=== PATIENT | female | born 1975 | race Caucasian/White ===

== ENCOUNTER 2020-07-21 06:12 | Inpatient (IN) | payer OTHER ==
[2020-07-21 07:05] LABS: BASOPHIL 0.1 % (0-2); EOSINOPHIL 0 % (0-5); HCT 46.6 % (37.0-47.0); HGB 14.4 g/dl (12.5-16.0); LYMPHOCYTE 9.5 % (15-48); MCH 30.8 pg (25.0-31.0); MCHC 30.9 g/dL (32.0-36.0); MCV 99.6 fL (78.0-100.0); MONOCYTE 2.2 % (0-12); MPV 8.5 fL (6.0-9.5); NEUTROPHIL 87.4 % (41-80); NRBC 0; PLT 222 K/uL (150-400); RBC 4.68 M/uL (4.20-5.40); RDW 20.8 % (11.5-14.0); WBC 7.8 K/uL (4.0-10.5)
[2020-07-21 07:38] LABS: ALBUMIN 2.3 g/dL (3.4-5.0); BILIRUBIN - TOTAL 0.9 mg/dL (0.2-1.0); BUN/CREAT RATIO (CALC) 22.6 RATIO; CREATININE 1.64 mg/dL (0.51-0.95); GLOBULIN (CALCULATION) 4.8 g/dL; POTASSIUM 2.9 mmol/L (3.5-5.1); TOTAL PROTEIN 7.1 g/dL (6.4-8.2)
[2020-07-21 07:43] LABS: BILIRUBIN NEGATIVE (NEGATIVE); BLOOD 1+ Ery/uL (NEGATIVE); CLARITY HAZY (CLEAR); COLOR YELLOW (YELLOW); GLUCOSE (U) 3+ mg/dL (NORMAL); LEUKOCYTES NEGATIVE Leu/uL (NEGATIVE); NITRITE NEGATIVE (NEGATIVE); PROTEIN 2+ mg/dL (NEGATIVE); UROBILINOGEN 0.2 mg/dL (0.2-1.0)
[2020-07-21 07:52] LABS: BACTERIA 4+; URINARY WBC 20-50
[2020-07-21 09:08] LABS: LACTIC ACID 2.4 mmol/L (0.4-1.9)
[2020-07-21] MEDS ORDERED: PROZAC20 MG PO (15:00)
[2020-07-21] MEDS ORDERED: RIZATRIPTAN10 MG PO (15:01)
[2020-07-21] MEDS ORDERED: ASPIRIN EC81 MG PO (15:02)
[2020-07-21] MEDS ORDERED: ZOFRAN4 M1 SL (15:02)
[2020-07-21] MEDS ORDERED: LASIX40 MG PO (15:03)
[2020-07-21] MEDS ORDERED: PEPCID AC20 MG PO (15:03)
[2020-07-21] MEDS ORDERED: CETIRIZINE HCL10 MG PO (15:04)
[2020-07-21] MEDS ORDERED: ATARAX25 MG PO (15:05)
[2020-07-21] MEDS ORDERED: BASAGLAR K100 UNIT/1 SC (15:06)
[2020-07-21] MEDS ORDERED: ADMELOG SO100 UNIT/1 SC (15:06)
--- NOTE | 2020-07-22 06:25 | NUR ---
PT REQUESTED A CENTRAL LINE LAB COULD NOT GET BLOOD, STATED SHE WOULD ASK DR FOR A CENTRAL LINE. TRANSIT MECHANIC NOTIFIED-STATED HE WOULD PASS IT ON TO
[2020-07-22 09:34] LABS: BASOPHIL 0.5 % (0-2); EOSINOPHIL 2.6 % (0-5); HCT 31.6 % (37.0-47.0); HGB 10.2 g/dl (12.5-16.0); LYMPHOCYTE 25.8 % (15-48); MCH 27.7 pg (25.0-31.0); MCHC 32.3 g/dL (32.0-36.0); MCV 85.9 fL (78.0-100.0); MONOCYTE 5.8 % (0-12); MPV 10.1 fL (6.0-9.5); NRBC 0; PLT 339 K/uL (150-400); RBC 3.68 M/uL (4.20-5.40); RDW 13.9 % (11.5-14.0); WBC 12.5 K/uL (4.0-10.5)
[2020-07-22 10:05] LABS: CREATININE 0.76 mg/dL (0.51-0.95); POTASSIUM 3.5 mmol/L (3.5-5.1)
--- NOTE | 2020-07-22 22:49 | NUR ---
ENTERED PT ROOM DURING ROUNDS TO FIND THAT HER VISITOR HAD BROUGHT UP A PIZZA AND THE PT WAS EATING IT. PT WAS EDUCATED ON DIET ORDERS AND THE REASONING FOR SAID ORDERS AND ADVISED AGAINST EATING THE PIZZA. PT WAS OFFERED FOOD CONSISTENT WITH A DENTAL SOFT DIET TO WHICH SHE REFUSED AND TOLD ME THAT SHE WAS ONLY EATING THE CRUST OF HER PIZZA. SHE SHOWED ME THE REST OF IT IN THE BOX. I TOLD THE PT THAT IF SHE WERE TO CONTINUE TO EAT HER PIZZA TO PLEASE CALL OUT IF SHE WERE TO EXPERIENCE ANY N/V OR OTHER GI DISCOMFORT.
[2020-07-23 09:47] LABS: HCT 32.8 % (37.0-47.0); HGB 10.6 g/dl (12.5-16.0); MCH 27.5 pg (25.0-31.0); MCHC 32.3 g/dL (32.0-36.0); MCV 85.2 fL (78.0-100.0); RBC 3.85 M/uL (4.20-5.40); RDW 13.7 % (11.5-14.0); WBC 11.7 K/uL (4.0-10.5)
[2020-07-23 10:15] LABS: BUN/CREAT RATIO (CALC) 12.7 RATIO; CREATININE 0.71 mg/dL (0.51-0.95); MAGNESIUM 1.7 mg/dL (1.8-2.4); POTASSIUM 3.8 mmol/L (3.5-5.1)
--- NOTE | 2020-07-23 14:25 | NUR ---
07/23 Ms. Clemente shares a home with her boyfriend. She was independent in the home and community prior to admission. No discharge needs are anticipated.
[2020-07-24 01:36] LABS: HCT 30.6 % (37.0-47.0); MCH 27.8 pg (25.0-31.0); MCHC 32.7 g/dL (32.0-36.0); MPV 10.1 fL (6.0-9.5); RBC 3.6 M/uL (4.20-5.40); RDW 13.4 % (11.5-14.0); WBC 10.5 K/uL (4.0-10.5)
[2020-07-24 01:53] LABS: BUN/CREAT RATIO (CALC) 13.9 RATIO; CREATININE 0.79 mg/dL (0.51-0.95); POTASSIUM 3.6 mmol/L (3.5-5.1)
--- NOTE | 2020-07-24 04:40 | NUR ---
2042 PT BS WAS 386. SPOKE WITH CHRIS ARMENDARIZ AND GAVE 10 UNITS OF REGUAR INSULIN WITH 15 OF LANTUS ORDERED. WAS TO RECHECK PT BS IN AN HOUR. WHEN BS WAS TO BE RECHECKED SABAS THE AIDE ATTEMPTED TO CHECK PT AND THE GLUCOMETER ERRORED. AT THAT TIME PT REFUSED TO HAVE HER BS CHECKED AGAIN. LABS WERE DRAWN SHORTLY AFTER THAT INCIDENT AT 0121. AT 0200 PT CALLED OUT BECAUSE SHE WANTED TO HAVE HER SUGAR CHECKED BECAUSE SHE WOKE UP SWEATING. I INFORMED THE PT THAT WHEN I HAD DRAWN HER LABS THIRTY MINUTES BEFORE THAT HER BS READ 86. I GAVE PT A SNACK AND SOME APPLE JUICE TO EAT AT THAT TIME. WHEN I CHECKED ON THE PT 15 MINUTES LATER SHE SAID SHE WAS DOING MUCH BETTER.
[2020-07-24] MEDS ORDERED: K-DUR20 MEQ PO (10:13)
[2020-07-24] MEDS ORDERED: PEPCID AC20 MG PO (10:13)
[2020-07-24] MEDS ORDERED: PHENERGAN25 M1 PO (10:13)
[2020-07-24] MEDS ORDERED: LEVAQUIN500 MG PO (10:13)
--- NOTE | 2020-07-24 13:31 | NUR ---
1205 CENTRAL LINE REMOVED PER PROTCOLOL AND PRESSURE WAS HELD AND A PRESSURE DRESSING APPLIED. WILL MONITOR FOR CHANGES. 1210 CHECKED PRESSURE DRESSING AND NO BLEEDING IS NOTED 1215 CHECKED PRESSURE DRESSING FOR BLEEDING NONE IS NOTED. 1300 PATIENT HAS BEEN DISCHARGES AND THE DRESSING WAS CLEAN DRY AND INTACT NO BLEEDING IS NOTED. INSTRUCTED TO LEAVE THE DRESSING IN PLACE SEVERAL MORE HOURS AFTER GETTING HOME AND ALSO TO REPORT ANY BLEEDING IMMEDITALY.
--- NOTE | 2020-07-24 13:38 | NUR ---
I have reviewed the assessment documented by the Student Nurse and agree with the findings.
== END 2020-07-24 13:00 | disposition home or self-care (01) | DRG 74 ==
LOC: FER 06:12 → FTCU 13:10 → FMS 07-22 14:07
PROVIDERS: Emergency Medicine; Hospitalist; ADMIT Internal Medicine
PROC: 02HV33Z Insertion of Infusion Device into Superior Vena Cava, Percutaneous Approach (ICD-10-PCS; principal; 2020-07-22)
PROC: B548ZZA Ultrasonography of Superior Vena Cava, Guidance (ICD-10-PCS; 2020-07-22)
DX: E11.43 Type 2 diabetes mellitus with diabetic autonomic (poly)neuropathy (principal); N39.0 Urinary tract infection, site not specified; N17.9 Acute kidney failure, unspecified; K31.84 Gastroparesis; Z20.822 Contact with and (suspected) exposure to COVID-19; R11.15 Cyclical vomiting syndrome unrelated to migraine; R00.0 Tachycardia, unspecified; B96.89 Other specified bacterial agents as the cause of diseases classified elsewhere; E86.0 Dehydration; E87.6 Hypokalemia; I25.10 Atherosclerotic heart disease of native coronary artery without angina pectoris; E11.649 Type 2 diabetes mellitus with hypoglycemia without coma; Z95.1 Presence of aortocoronary bypass graft; Z88.8 Allergy status to other drugs, medicaments and biological substances; Z80.0 Family history of malignant neoplasm of digestive organs; Z79.4 Long term (current) use of insulin; Z80.8 Family history of malignant neoplasm of other organs or systems; Z83.3 Family history of diabetes mellitus; Z81.1 Family history of alcohol abuse and dependence; Z87.891 Personal history of nicotine dependence; Z79.82 Long term (current) use of aspirin; Z79.899 Other long term (current) drug therapy
CPT/HCPCS: 36415; 71045; 80048; 80053; 81001; 82009; 82962; 83036; 83605; 83690; 83735; 84145; 84484; 85025; 87040; 87076; 87088; 87186; 93005; C9113; J0696; J1170; J1956; J2405; J2550; J3475; J3480; J7030; U0002

== ENCOUNTER 2020-07-27 19:18 | Day surgery (SDCO) | payer OTHER ==
[~2020-07-27 19:18] MED LIST: ADMELOG SO100 UNIT/1 SC; ASPIRIN EC81 MG PO; ATARAX25 MG PO; BASAGLAR K100 UNIT/1 SC; CETIRIZINE HCL10 MG PO; K-DUR20 MEQ PO; LASIX40 MG PO; LEVAQUIN500 MG PO; PEPCID AC20 MG PO; PHENERGAN25 M1 PO; PROZAC20 MG PO; RIZATRIPTAN10 MG PO; ZOFRAN4 M1 SL
[2020-07-27 20:46] LABS: BASOPHIL 0.9 % (0-2); EOSINOPHIL 3.7 % (0-5); HCT 37.8 % (37.0-47.0); HGB 12.5 g/dl (12.5-16.0); LYMPHOCYTE 21.9 % (15-48); MCHC 33.1 g/dL (32.0-36.0); MCV 84.8 fL (78.0-100.0); MONOCYTE 4.4 % (0-12); MPV 10.2 fL (6.0-9.5); NEUTROPHIL 68.6 % (41-80); NRBC 0; PLT 396 K/uL (150-400); RBC 4.46 M/uL (4.20-5.40); RDW 13.3 % (11.5-14.0); WBC 7.9 K/uL (4.0-10.5)
[2020-07-27 21:05] LABS: ALBUMIN 2.5 g/dL (3.4-5.0); BILIRUBIN - TOTAL 0.1 mg/dL (0.2-1.0); BUN/CREAT RATIO (CALC) 13.2 RATIO; C-REACTIVE PROTEIN 1.6 mg/dL (<=0.90); CREATININE 0.91 mg/dL (0.51-0.95); GLOBULIN (CALCULATION) 3.8 g/dL; MAGNESIUM 1.7 mg/dL (1.8-2.4); POTASSIUM 3.6 mmol/L (3.5-5.1); TOTAL PROTEIN 6.3 g/dL (6.4-8.2)
[2020-07-28 05:46] LABS: BASOPHIL 0.8 % (0-2); EOSINOPHIL 5.4 % (0-5); HCT 36.4 % (37.0-47.0); HGB 11.5 g/dl (12.5-16.0); LYMPHOCYTE 36.4 % (15-48); MCH 27.4 pg (25.0-31.0); MCHC 31.6 g/dL (32.0-36.0); MCV 86.7 fL (78.0-100.0); MONOCYTE 7.4 % (0-12); MPV 9.8 fL (6.0-9.5); NEUTROPHIL 49.7 % (41-80); NRBC 0; PLT 390 K/uL (150-400); RDW 13.4 % (11.5-14.0); WBC 7.4 K/uL (4.0-10.5)
[2020-07-28 06:11] LABS: BILIRUBIN NEGATIVE (NEGATIVE); BLOOD TRACE-INTACT Ery/uL (NEGATIVE); CLARITY CLEAR (CLEAR); COLOR YELLOW (YELLOW); GLUCOSE (U) 1+ mg/dL (NORMAL); LEUKOCYTES NEGATIVE Leu/uL (NEGATIVE); NITRITE NEGATIVE (NEGATIVE); PROTEIN TRACE (LOW) mg/dL (NEGATIVE); SPECIFIC GRAVITY 1.025 (1.001-1.030); UROBILINOGEN 0.2 mg/dL (0.2-1.0)
[2020-07-28 06:25] LABS: BACTERIA TRACE; YEAST PRESENT
[2020-07-28 06:37] LABS: ALBUMIN 2.3 g/dL (3.4-5.0); BILIRUBIN - TOTAL 0.1 mg/dL (0.2-1.0); BUN/CREAT RATIO (CALC) 13.4 RATIO; CREATININE 0.82 mg/dL (0.51-0.95); GLOBULIN (CALCULATION) 3.4 g/dL; POTASSIUM 3.6 mmol/L (3.5-5.1); TOTAL PROTEIN 5.7 g/dL (6.4-8.2)
[2020-07-28 15:07] LABS: ECSTASY (MDMA) NEGATIVE (NEGATIVE); MARIJUANA (THC) NEGATIVE (NEGATIVE); METHADONE NEGATIVE (NEGATIVE); OPIATES POSITIVE (NEGATIVE)
[2020-07-28 15:08] LABS: AMPHETAMINES NEGATIVE (NEGATIVE); BARBITURATES NEGATIVE (NEGATIVE); OXYCODONE NEGATIVE (NEGATIVE)
[2020-07-29 06:48] LABS: BASOPHIL 0.5 % (0-2); EOSINOPHIL 1.6 % (0-5); HCT 35.5 % (37.0-47.0); HGB 11.2 g/dl (12.5-16.0); MCH 27.7 pg (25.0-31.0); MCHC 31.5 g/dL (32.0-36.0); MCV 87.7 fL (78.0-100.0); MONOCYTE 6.3 % (0-12); MPV 11.1 fL (6.0-9.5); NEUTROPHIL 73.1 % (41-80); NRBC 0; PLT 302 K/uL (150-400); RBC 4.05 M/uL (4.20-5.40); RDW 13.4 % (11.5-14.0); WBC 10.6 K/uL (4.0-10.5)
[2020-07-29 07:22] LABS: ALBUMIN 2.5 g/dL (3.4-5.0); BILIRUBIN - TOTAL 0.2 mg/dL (0.2-1.0); BUN/CREAT RATIO (CALC) 8.5 RATIO; C-REACTIVE PROTEIN 1.5 mg/dL (<=0.90); CREATININE 0.71 mg/dL (0.51-0.95); GLOBULIN (CALCULATION) 3.5 g/dL; POTASSIUM 4.7 mmol/L (3.5-5.1)
--- NOTE | 2020-07-29 17:30 | NUR ---
PT UPSET AND WANTING TO BE DISCHARGE, BECAUSE SHE GOT TOMATO SOUP. OFFERED TO GET HER ANOTHER TRAY, SHE SAID SHE JUST WANTED DRAlfa TO D/C HER. INFORMED DR. CHOU AND HE SAID HE WAS NOT ABLE TO D/C HER. BUT SHE COULD LEAVE AMA. TALKED TO PT AGAIN AND SHE SAID SHE WOULD STAY AND TRY CHICKEN NOODLE SOUP.
[2020-07-30 05:43] LABS: BASOPHIL 0.7 % (0-2); EOSINOPHIL 8.9 % (0-5); HCT 30.6 % (37.0-47.0); HGB 9.8 g/dl (12.5-16.0); LYMPHOCYTE 42.5 % (15-48); MCH 27.4 pg (25.0-31.0); MCV 85.5 fL (78.0-100.0); MONOCYTE 8.2 % (0-12); MPV 9.8 fL (6.0-9.5); NEUTROPHIL 39.3 % (41-80); NRBC 0; PLT 318 K/uL (150-400); RBC 3.58 M/uL (4.20-5.40); RDW 13.2 % (11.5-14.0)
[2020-07-30 06:23] LABS: BILIRUBIN - TOTAL 0.2 mg/dL (0.2-1.0); BUN/CREAT RATIO (CALC) 6.7 RATIO; C-REACTIVE PROTEIN 1.5 mg/dL (<=0.90); CREATININE 0.75 mg/dL (0.51-0.95); GLOBULIN (CALCULATION) 3.3 g/dL; MAGNESIUM 1.9 mg/dL (1.8-2.4); POTASSIUM 4.6 mmol/L (3.5-5.1); TOTAL PROTEIN 5.3 g/dL (6.4-8.2)
--- NOTE | 2020-07-30 14:08 | NUR ---
07/30/20 Ms. Clemente shares a home with her boyfriend, Jay. They report to be having financial difficulty. Ms. Clemente is not working and her boyfriend has less work due to COVID. They were educated to [employer], [employer], and [facility].
[2020-07-30] MEDS ORDERED: PERCOCET 5-3251 EACH PO (14:26)
[2020-07-30] MEDS ORDERED: REGLAN10 MG PO (14:26)
[2020-07-30] MEDS ORDERED: PHENERGAN25 M1 PO (14:26)
== END 2020-07-30 15:15 | disposition home or self-care (01) ==
LOC: FER 19:18 → FMS 07-28 00:12
PROVIDERS: Emergency Medicine; Nurse Practitioner; ADMIT Internal Medicine
DX: E10.43 Type 1 diabetes mellitus with diabetic autonomic (poly)neuropathy (principal); K31.84 Gastroparesis; I25.10 Atherosclerotic heart disease of native coronary artery without angina pectoris; I25.2 Old myocardial infarction; G43.909 Migraine, unspecified, not intractable, without status migrainosus; I50.9 Heart failure, unspecified; F17.210 Nicotine dependence, cigarettes, uncomplicated; K21.9 Gastro-esophageal reflux disease without esophagitis; E86.0 Dehydration; B37.49 Other urogenital candidiasis; Z79.82 Long term (current) use of aspirin; Z79.899 Other long term (current) drug therapy; Z88.8 Allergy status to other drugs, medicaments and biological substances; Z95.1 Presence of aortocoronary bypass graft; Z20.822 Contact with and (suspected) exposure to COVID-19
CPT/HCPCS: 36415; 80053; 80305; 81001; 83036; 83605; 83690; 83735; 84145; 85025; 86140; G0378; J1170; J1650; J2405; J2550; J2765; J3475; J3480; J7030; J7120; U0002

== ENCOUNTER 2021-02-06 10:06 | Inpatient (IN) | payer OTHER ==
[~2021-02-06] VITALS: Ht 154.9 cm; Wt 51.9 kg
[~2021-02-06 10:06] MED LIST changes: +PERCOCET 5-3251 EACH PO; +REGLAN10 MG PO
[2021-02-06 11:15] LABS: BASOPHIL 0.5 % (0-2); EOSINOPHIL 1.7 % (0-5); HCT 40.3 % (37.0-47.0); LYMPHOCYTE 19.3 % (15-48); MCH 28.4 pg (25.0-31.0); MCHC 32.3 g/dL (32.0-36.0); MCV 88.2 fL (78.0-100.0); MONOCYTE 4.5 % (0-12); MPV 10.8 fL (6.0-9.5); NEUTROPHIL 73.8 % (41-80); NRBC 0; PLT 299 K/uL (150-400); RBC 4.57 M/uL (4.20-5.40); RDW 13.2 % (11.5-14.0)
[2021-02-06 11:32] LABS: ALBUMIN 3.2 g/dL (3.4-5.0); BILIRUBIN - TOTAL 0.7 mg/dL (0.2-1.0); CREATININE 1.11 mg/dL (0.51-0.95); POTASSIUM 4.3 mmol/L (3.5-5.1); TOTAL PROTEIN 7.2 g/dL (6.4-8.2)
[2021-02-06 12:02] LABS: LACTIC ACID 4.4 mmol/L (0.4-1.9)
[2021-02-06 13:57] LABS: BILIRUBIN NEGATIVE (NEGATIVE); BLOOD NEGATIVE Ery/uL (NEGATIVE); CLARITY CLEAR (CLEAR); COLOR YELLOW (YELLOW); GLUCOSE (U) 3+ mg/dL (NORMAL); LEUKOCYTES NEGATIVE Leu/uL (NEGATIVE); NITRITE NEGATIVE (NEGATIVE); PROTEIN NEGATIVE (NEGATIVE); SPECIFIC GRAVITY <=1.005 (1.001-1.030); UROBILINOGEN 0.2 mg/dL (0.2-1.0); pH 5.5 (5.0-9.0)
[2021-02-06 16:04] LABS: BUN/CREAT RATIO (CALC) 20.3 RATIO; CREATININE 1.18 mg/dL (0.51-0.95); POTASSIUM 5.6 mmol/L (3.5-5.1)
[2021-02-06 17:16] LABS: MAGNESIUM 2.2 mg/dL (1.8-2.4); POTASSIUM 5.2 mmol/L (3.5-5.1)
--- NOTE | 2021-02-06 18:44 | NUR ---
PATIENT RECEIVEDS VIA STRETCHER FROM ER. BLOOD SUGAR TOO HIGH FOR METER
[2021-02-06 20:14] LABS: LACTIC ACID 6.7 mmol/L (0.4-1.9)
[2021-02-06 20:15] LABS: BUN/CREAT RATIO (CALC) 18.1 RATIO; CREATININE 1.38 mg/dL (0.51-0.95); POTASSIUM 3.9 mmol/L (3.5-5.1)
[2021-02-07 01:28] LABS: BUN/CREAT RATIO (CALC) 19.2 RATIO; CREATININE 1.2 mg/dL (0.51-0.95); POTASSIUM 3.9 mmol/L (3.5-5.1)
[2021-02-07 04:04] LABS: CREATININE 1.1 mg/dL (0.51-0.95)
[2021-02-07 08:29] LABS: BASOPHIL 0.3 % (0-2); EOSINOPHIL 0.3 % (0-5); HCT 30.7 % (37.0-47.0); HGB 10.1 g/dl (12.5-16.0); LYMPHOCYTE 13.6 % (15-48); MCH 28.7 pg (25.0-31.0); MCHC 32.9 g/dL (32.0-36.0); MCV 87.2 fL (78.0-100.0); MONOCYTE 5.3 % (0-12); MPV 9.9 fL (6.0-9.5); NEUTROPHIL 79.9 % (41-80); NRBC 0; PLT 306 K/uL (150-400); RBC 3.52 M/uL (4.20-5.40); RDW 13.8 % (11.5-14.0); WBC 20.9 K/uL (4.0-10.5)
[2021-02-07 08:53] LABS: LACTIC ACID 2.6 mmol/L (0.4-1.9)
[2021-02-07 14:52] LABS: BUN/CREAT RATIO (CALC) 18.8 RATIO; CREATININE 1.01 mg/dL (0.51-0.95); POTASSIUM 3.8 mmol/L (3.5-5.1)
[2021-02-08 05:27] LABS: BASOPHIL 0.3 % (0-2); EOSINOPHIL 3.1 % (0-5); HCT 28.5 % (37.0-47.0); HGB 9.2 g/dl (12.5-16.0); LYMPHOCYTE 23.2 % (15-48); MCH 28.7 pg (25.0-31.0); MCHC 32.3 g/dL (32.0-36.0); MCV 88.8 fL (78.0-100.0); MONOCYTE 5.6 % (0-12); NEUTROPHIL 67.5 % (41-80); NRBC 0; PLT 230 K/uL (150-400); RBC 3.21 M/uL (4.20-5.40); WBC 11.8 K/uL (4.0-10.5)
[2021-02-08 05:42] LABS: ALBUMIN 2.3 g/dL (3.4-5.0); BILIRUBIN - TOTAL 0.2 mg/dL (0.2-1.0); BUN/CREAT RATIO (CALC) 16.9 RATIO; CREATININE 0.83 mg/dL (0.51-0.95); GLOBULIN (CALCULATION) 2.9 g/dL; MAGNESIUM 1.8 mg/dL (1.8-2.4); POTASSIUM 4.4 mmol/L (3.5-5.1)
[2021-02-08 05:48] LABS: TOTAL PROTEIN 5.2 g/dL (6.4-8.2)
== END 2021-02-08 12:27 | disposition home or self-care (01) | DRG 637 ==
LOC: FER 10:06 → FICU 15:30 → FMS 02-07 17:08 → FICU 02-07 20:14 → FMS 02-08 12:27
PROVIDERS: Emergency Medicine; Nurse Practitioner; ADMIT Family Medicine
PROC: 02HV33Z Insertion of Infusion Device into Superior Vena Cava, Percutaneous Approach (ICD-10-PCS; principal; 2021-02-06)
PROC: B543ZZA Ultrasonography of Right Jugular Veins, Guidance (ICD-10-PCS; 2021-02-06)
DX: E11.10 Type 2 diabetes mellitus with ketoacidosis without coma (principal); J96.01 Acute respiratory failure with hypoxia; R65.11 Systemic inflammatory response syndrome (SIRS) of non-infectious origin with acute organ dysfunction; I21.A1 Myocardial infarction type 2; Z20.822 Contact with and (suspected) exposure to COVID-19; E87.5 Hyperkalemia; E11.43 Type 2 diabetes mellitus with diabetic autonomic (poly)neuropathy; K31.84 Gastroparesis; I50.9 Heart failure, unspecified; R94.31 Abnormal electrocardiogram [ECG] [EKG]; F32.9 Major depressive disorder, single episode, unspecified; K21.9 Gastro-esophageal reflux disease without esophagitis; I25.2 Old myocardial infarction; Z83.3 Family history of diabetes mellitus; Z82.49 Family history of ischemic heart disease and other diseases of the circulatory system; Z79.4 Long term (current) use of insulin; Z79.84 Long term (current) use of oral hypoglycemic drugs; Z79.899 Other long term (current) drug therapy; Z79.82 Long term (current) use of aspirin; Z88.8 Allergy status to other drugs, medicaments and biological substances; Z95.1 Presence of aortocoronary bypass graft
CPT/HCPCS: 36415; 36600; 71045; 71250; 80048; 80053; 81003; 82009; 82150; 82803; 82962; 83605; 83690; 83735; 83880; 84132; 84145; 84484; 85025; 87040; 93005; 94010; C9113; J0780; J1170; J1650; J1815; J2270; J2405; J2543; J2550; J3370; J3480; J7030; J7050; U0002

== ENCOUNTER 2021-10-03 21:46 | Emergency (ER) | payer OTHER ==
[2021-10-03 23:01] LABS: BASOPHIL 0.8 % (0-2); EOSINOPHIL 2.3 % (0-5); HCT 39.8 % (37.0-47.0); HGB 12.6 g/dl (12.5-16.0); LYMPHOCYTE 43.7 % (15-48); MCH 26.6 pg (25.0-31.0); MCHC 31.7 g/dL (32.0-36.0); MONOCYTE 9.5 % (0-12); MPV 10.8 fL (6.0-9.5); NEUTROPHIL 43.5 % (41-80); NRBC 0; PLT 197 K/uL (150-400); RBC 4.74 M/uL (4.20-5.40); RDW 14.5 % (11.5-14.0); WBC 6.6 K/uL (4.0-10.5)
[2021-10-03 23:28] LABS: ALBUMIN 3.6 g/dL (3.4-5.0); BILIRUBIN - TOTAL 0.2 mg/dL (0.2-1.0); BUN/CREAT RATIO (CALC) 21.1 RATIO; CREATININE 1.14 mg/dL (0.51-0.95); GLOBULIN (CALCULATION) 4.2 g/dL; TOTAL PROTEIN 7.8 g/dL (6.4-8.2)
[2021-10-04 01:02] LABS: BILIRUBIN NEGATIVE (NEGATIVE); BLOOD TRACE-INTACT Ery/uL (NEGATIVE); CLARITY CLEAR (CLEAR); COLOR YELLOW (YELLOW); GLUCOSE (U) 3+ mg/dL (NORMAL); LEUKOCYTES NEGATIVE Leu/uL (NEGATIVE); NITRITE NEGATIVE (NEGATIVE); PROTEIN NEGATIVE (NEGATIVE); UROBILINOGEN 0.2 mg/dL (0.2-1.0); pH 6.5 (5.0-9.0)
[2021-10-04 01:11] LABS: BACTERIA TRACE; SQUAMOUS EPITHELIAL CELLS RARE
== END 2021-10-04 02:42 | disposition home or self-care (01) ==
LOC: FER 21:46
PROVIDERS: Physician Assistant
DX: H53.8 Other visual disturbances (principal); N17.9 Acute kidney failure, unspecified; E11.65 Type 2 diabetes mellitus with hyperglycemia; I10 Essential (primary) hypertension; E78.5 Hyperlipidemia, unspecified; Z79.82 Long term (current) use of aspirin; Z79.4 Long term (current) use of insulin; Z88.8 Allergy status to other drugs, medicaments and biological substances; Z79.899 Other long term (current) drug therapy
CPT/HCPCS: 36415; 70450; 70480; 80053; 81001; 82009; 85025; 96372; J1170; J2550; J7030

== ENCOUNTER 2022-01-11 16:19 | Emergency (ER) | payer OTHER ==
[2022-01-11 17:34] LABS: BASOPHIL 0.8 % (0-2); EOSINOPHIL 1.8 % (0-5); HCT 34.5 % (37.0-47.0); HGB 11.1 g/dl (12.5-16.0); LYMPHOCYTE 29.5 % (15-48); MCH 28.2 pg (25.0-31.0); MCHC 32.2 g/dL (32.0-36.0); MCV 87.8 fL (78.0-100.0); MONOCYTE 9.4 % (0-12); NEUTROPHIL 58.3 % (41-80); NRBC 0; PLT 207 K/uL (150-400); RBC 3.93 M/uL (4.20-5.40); WBC 8.4 K/uL (4.0-10.5)
[2022-01-11 18:02] LABS: ALBUMIN 3.6 g/dL (3.4-5.0); BILIRUBIN - TOTAL 0.4 mg/dL (0.2-1.0); BUN/CREAT RATIO (CALC) 18.7 RATIO; CREATININE 1.5 mg/dL (0.51-0.95); GLOBULIN (CALCULATION) 3.7 g/dL; POTASSIUM 3.7 mmol/L (3.5-5.1); TOTAL PROTEIN 7.3 g/dL (6.4-8.2)
[2022-01-11 18:46] LABS: CORONAVIRUS 2019 SARS-COV-2 NEGATIVE (NEGATIVE); INFLUENZA A NAA NEGATIVE (NEGATIVE)
[2022-01-11 19:44] LABS: IRON % SATURATION 9.6 %SAT (20-50)
[2022-01-11] MEDS ORDERED: KEFLEX250 MG PO ×2 (20:48→21:23)
== END 2022-01-11 21:10 | disposition home or self-care (01) ==
LOC: FER 16:19
PROVIDERS: Internal Medicine
DX: K92.1 Melena (principal); N17.9 Acute kidney failure, unspecified; N39.0 Urinary tract infection, site not specified; N76.89 Other specified inflammation of vagina and vulva; R53.83 Other fatigue; E10.9 Type 1 diabetes mellitus without complications; Z79.4 Long term (current) use of insulin; Z87.891 Personal history of nicotine dependence; Z88.8 Allergy status to other drugs, medicaments and biological substances; Z20.822 Contact with and (suspected) exposure to COVID-19
CPT/HCPCS: 36415; 80053; 82728; 83540; 83550; 85025; 86850; 86900; 86901; C9113; J7030; U0002

== ENCOUNTER 2022-01-15 15:03 | Emergency (ER) | payer OTHER ==
[~2022-01-15 15:03] MED LIST changes: +KEFLEX250 MG PO
[2022-01-15 16:41] LABS: BASOPHIL 0.5 % (0-2); EOSINOPHIL 0.9 % (0-5); HGB 10.9 g/dl (12.5-16.0); LYMPHOCYTE 25.3 % (15-48); MCH 28.1 pg (25.0-31.0); MCHC 32.1 g/dL (32.0-36.0); MCV 87.6 fL (78.0-100.0); MONOCYTE 4.8 % (0-12); MPV 11.2 fL (6.0-9.5); NEUTROPHIL 68.1 % (41-80); NRBC 0; PLT 221 K/uL (150-400); RBC 3.88 M/uL (4.20-5.40); RDW 14.1 % (11.5-14.0); WBC 10.1 K/uL (4.0-10.5)
[2022-01-15 17:24] LABS: LACTIC ACID 1.7 mmol/L (0.4-1.9)
[2022-01-15 19:03] LABS: ALBUMIN 3.2 g/dL (3.4-5.0); BILIRUBIN - TOTAL 0.5 mg/dL (0.2-1.0); CREATININE 1.39 mg/dL (0.51-0.95); GLOBULIN (CALCULATION) 3.6 g/dL; TOTAL PROTEIN 6.8 g/dL (6.4-8.2)
[2022-01-15 19:07] LABS: POTASSIUM 4.9 mmol/L (3.5-5.1)
[2022-01-15 20:08] LABS: BILIRUBIN NEGATIVE (NEGATIVE); BLOOD TRACE-LYSED Ery/uL (NEGATIVE); CLARITY CLEAR (CLEAR); COLOR YELLOW (YELLOW); GLUCOSE (U) NORMAL (NORMAL); LEUKOCYTES 3+ Leu/uL (NEGATIVE); NITRITE POSITIVE (NEGATIVE); PROTEIN NEGATIVE (NEGATIVE); UROBILINOGEN 0.2 mg/dL (0.2-1.0); pH 5.5 (5.0-9.0)
[2022-01-15 20:21] LABS: BACTERIA TRACE
[2022-01-15] MEDS ORDERED: DIFLUCAN 100MG100 MG PO (20:26)
[2022-01-15] MEDS ORDERED: METRONIDAZOLE500 MG PO (20:26)
[2022-01-15] MEDS ORDERED: COLACE100 MG PO (20:26)
[2022-01-15] MEDS ORDERED: NORCO 5-325 TA1 EACH PO (20:26)
[2022-01-18 22:10] LABS: CHLAMYDIA TRACHOMATIS, NAA Negative (Negative); NEISSERIA GONORRHOEAE, NAA Negative (Negative)
[2022-01-19] MEDS ORDERED: COZAAR25 MG PO (13:04)
[2022-01-19] MEDS ORDERED: HUMALOG100 UNIT/1 SC (13:04)
[2022-01-19] MEDS ORDERED: PROTONIX 40MG T40 MG PO (13:04)
[2022-01-19] MEDS ORDERED: CRESTOR20 MG PO (13:04)
[2022-01-19] MEDS ORDERED: LANTUS **100 UNITS/ SC (13:04)
== END 2022-01-15 20:47 | disposition home or self-care (01) ==
LOC: FER 15:03
PROVIDERS: Emergency Medicine
DX: N39.0 Urinary tract infection, site not specified (principal); K59.00 Constipation, unspecified; I10 Essential (primary) hypertension; E11.9 Type 2 diabetes mellitus without complications; Z79.4 Long term (current) use of insulin; Z88.8 Allergy status to other drugs, medicaments and biological substances; Z79.82 Long term (current) use of aspirin; Z28.310 Unvaccinated for COVID-19
CPT/HCPCS: 36415; 80053; 81001; 83605; 83690; 85025; 87088; 87491; 87591; J1885; J2270; J2405

== ENCOUNTER → 2022-01-24 | Day surgery (SDC) | payer OTHER ==
[~2022-01-24] VITALS: Ht 152.4 cm; Wt 54.4 kg
[~2022-01-24] MED LIST changes: +COLACE100 MG PO; +COZAAR25 MG PO; +CRESTOR20 MG PO; +DIFLUCAN 100MG100 MG PO; +HUMALOG100 UNIT/1 SC; +LANTUS **100 UNITS/ SC; +METRONIDAZOLE500 MG PO; +NORCO 5-325 TA1 EACH PO; +PROTONIX 40MG T40 MG PO
[2022-01-24 08:23] LABS: HCG (URINE) SCREEN NEGATIVE (NEGATIVE)
== END | disposition home or self-care (01) ==
LOC: FAS 07:55
PROVIDERS: Anesthesiology
DX: D12.3 Benign neoplasm of transverse colon (principal); D12.5 Benign neoplasm of sigmoid colon; K92.1 Melena; D64.9 Anemia, unspecified; K21.9 Gastro-esophageal reflux disease without esophagitis; Z87.11 Personal history of peptic ulcer disease; Z87.19 Personal history of other diseases of the digestive system; I11.0 Hypertensive heart disease with heart failure; I50.9 Heart failure, unspecified; E78.5 Hyperlipidemia, unspecified; E10.9 Type 1 diabetes mellitus without complications; Z79.82 Long term (current) use of aspirin; Z79.4 Long term (current) use of insulin; Z79.899 Other long term (current) drug therapy; Z88.8 Allergy status to other drugs, medicaments and biological substances; Z87.891 Personal history of nicotine dependence; Z72.89 Other problems related to lifestyle; Z80.0 Family history of malignant neoplasm of digestive organs; K31.9 Disease of stomach and duodenum, unspecified
CPT/HCPCS: 84703; J1610; J2250; J2704; J7120